=== PATIENT | female | born 1950 | race Caucasian/White ===

== ENCOUNTER 2023-05-28 08:05 | Day surgery (SDC) | payer BC ==
[2023-05-27 10:51] VITALS: BMI 32.9
[2023-05-28] MEDS ORDERED: PROPOFOL 200 MG/20 ML VIAL ONE (10:53)
== END 2023-05-28 11:55 | disposition home or self-care (01) ==
LOC: SDC 08:05
PROVIDERS: ATTEND Internal Medicine Gastroenterology
PROC: 0DJD8ZZ Inspection of Lower Intestinal Tract, Via Natural or Artificial Opening Endoscopic (ICD-10-PCS; principal; 2023-05-28)
DX: Z12.11 Encounter for screening for malignant neoplasm of colon (principal); K57.30 Diverticulosis of large intestine without perforation or abscess without bleeding; I10 Essential (primary) hypertension; E78.5 Hyperlipidemia, unspecified; E11.9 Type 2 diabetes mellitus without complications; F41.9 Anxiety disorder, unspecified; F32.A Depression, unspecified; Z79.899 Other long term (current) drug therapy; Z86.010 Personal history of colon polyps; Z79.84 Long term (current) use of oral hypoglycemic drugs
CPT/HCPCS: 36416; J2704